=== PATIENT | female | born 1965 | race Asian ===

== ENCOUNTER 2017-05-08 11:29 | Emergency (ER) | payer OTHER ==
[~2017-05-08] VITALS: Ht 160 cm; Wt 63.5 kg
[~2017-05-08 11:29] MED LIST: ASPIRIN PO; BUTALBITAL PO; CAFFEINE PO; [UNRECOGNIZED DRUG - CODE] PO
[2017-05-08 11:57] VITALS: BP 139/74
--- NOTE | 2017-05-08 12:01 | NUR ---
PT PRESENTS TO ER FOR EVALUATION OF LACERATION TO LEFT WRIST SUSTAINED LAST NOC WHILE LIFTING BOXES. DENIES N/V/D; SKIN IS PINK/WARM/DRY; AAOX4 WITH EVEN AND STEADY GAIT; LUNGS CLEAR BL; HR EVEN AND REGULAR; PT DENIES ANY FEVER, CP, SOB, OR COUGH AT THIS TIME; PATIENT STATES PAIN OF 7/10 AT THIS TIME; VSS; PATIENT POSITIONED FOR COMFORT; HOB ELEVATED; BEDRAILS UP X2; BED DOWN. ER MD MADE AWARE OF PT STATUS.
--- NOTE | 2017-05-08 12:02 | NUR ---
DR GOODWIN EVALUATING AAO PT WITH DAUGHTER AT BEDSIDE
--- NOTE | 2017-05-08 12:07 | NUR ---
Dr. Roe evaluating patient at bedside.
[2017-05-08] MEDS ORDERED: LIDOCAINE 1% ED 0 ML ONE (12:11)
[2017-05-08 13:32] VITALS: BP 128/73
== END 2017-05-08 13:32 | disposition home or self-care (01) ==
LOC: MED 11:29
DX: S61.512A Laceration without foreign body of left wrist, initial encounter (principal); W25.XXXA Contact with sharp glass, initial encounter; Y93.89 Activity, other specified; Y92.89 Other specified places as the place of occurrence of the external cause; Y99.8 Other external cause status
CPT/HCPCS: 73110; 90471; 90715; 99284; Q0092; J2001

== ENCOUNTER 2018-10-10 01:15 | Emergency (ER) | payer OTHER ==
[~2018-10-10] VITALS: Ht 157.5 cm; Wt 56.7 kg
[2018-10-10 01:25] VITALS: BP 146/86
--- NOTE | 2018-10-10 01:25 | NUR ---
PT TAKEN TO BED 2
--- NOTE | 2018-10-10 01:35 | NUR ---
52 YO FEMALE COMES TO ED FOR C/O N/V X2 DAYS. PT STATES SHE ALSO HAS MIGRAINE. PT PRIMARILY SPEAKS [place]. PT SON @ BEDSIDE AND IS TRANSLATING. PT RECENTLY SAW PCP X1 WEEK AGO FOR HIGH BLOOD SUGAR AND WAS GIVEN REFERRAL FOR A SPECIALIST REGARDING DIABETES. PT STILL AWAITING APPOINTMENT TO GO SEE DOCTOR, AND STATES THAT HER SYMPTOMS BEGAN TO WORSEN. PT AAOX4, DENIES NUMBNESS TINGLING @ THIS TIME. PT AMB MOVING ALL EXTREMITIES. LUNGS CLEAR EVEN UNLABORED BILATERALLY. ABD SOFT NON DISTENDED. ACTIVE BS. PT VOIDING. SKIN INTACT. WILL UPDATE ER MD WILL CONTINUE TO OBSERVE. PMH: MIGRAINES, POSSIBLE DIABETES
--- NOTE | 2018-10-10 01:53 | NUR ---
Dr. Phelps evaluating patient at bedside.
[2018-10-10] MEDS ORDERED: SUMAtriptan 6 MG/0.5 ML VIAL SUBQ ONE (01:55)
--- NOTE | 2018-10-10 02:10 | NUR ---
PT STATED SHE FELT SOB PER SON. PULSE OX 100% SPO2. LUNGS CLEAR EVEN UNLABORED. WILL CONTINUE TO OBSERVE.
--- NOTE | 2018-10-10 02:18 | NUR ---
PT HAD X1 N/V ER MADE AWARE. BEVERLEY CONTI ORDERED. WILL CARRY OUT ORDER. WILL CONTINUE TO OBSERVE.
[2018-10-10] MEDS ORDERED: ONDANSETRON 4 MG ODT PO ONE (02:20)
[2018-10-10 03:14] VITALS: BP 140/68
--- NOTE | 2018-10-10 03:16 | NUR ---
Patient discharged with v/s stable. Written and verbal after care instructions given and explained BY ER MD. Patient alert, oriented and verbalized understanding of instructions. Ambulatory with steady gait. All questions addressed prior to discharge BY ER MD. ID band removed. Patient advised to follow up with PMD. Rx of IMITREX given. Patient educated on indication of medication including possible reaction and side effects BY ER MD. Opportunity to ask questions provided and answered FROM ER MD.
== END 2018-10-10 03:16 | disposition home or self-care (01) ==
LOC: MED 01:15
DX: G43.909 Migraine, unspecified, not intractable, without status migrainosus (principal); Z79.899 Other long term (current) drug therapy
CPT/HCPCS: 96372; 99283; J3030; Q0162

== ENCOUNTER 2023-05-24 16:26 | Emergency (ER) | payer OTHER ==
[~2023-05-24] VITALS: Ht 157.5 cm; Wt 68.0 kg
[2023-05-24 16:37] VITALS: BP 144/74; PULSE 73; RESP 14; TEMP 98.4; O2SAT 100
[2023-05-24 17:49] LABS: BASOPHILS % (AUTO) 0.6 % (0.0-2.0); EOSINOPHILS # (AUTO) 0.1 K/uL (0-0.4); HEMATOCRIT 37.3 % (36-48); HEMOGLOBIN 12.6 g/dL (12.0-16.0); LYMPHOCYTES # (AUTO) 3.1 K/uL (2.5-16.5); LYMPHOCYTES % (AUTO) 44.5 % (20.5-51.1); MEAN CORPUSCULAR HEMOGLOBIN 28 pg (27-31); MEAN CORPUSCULAR HGB CONC 34 g/dL (33-37); MONOCYTES # (AUTO) 0.4 K/uL (0.8-1.0); MONOCYTES % (AUTO) 5.8 % (1.7-9.3); NEUTROPHILS # (AUTO) 3.4 K/uL (1.8-7.7); NEUTROPHILS % (AUTO) 48.1 % (42.2-75.2); PLATELET COUNT (AUTO) 215 K/uL (140-450); RED BLOOD CELL COUNT(AUTO) 4.49 MIL/uL (4.20-5.40); RED CELL DISTRIBUTION WIDTH 12.4 % (11.6-13.7); WHITE BLOOD COUNT (AUTO) 7.1 K/uL (4.8-10.8)
[2023-05-24 18:15] LABS: ALANINE AMINOTRANSFERASE 26 U/L (12-78); ALBUMIN 3.7 g/dL (3.4-5.0); ALKALINE PHOSPHATASE 87 U/L (50-136); ANION GAP 11.8 (8-16); ASPARTATE AMINOTRANSFERASE 18 U/L (15-37); CARBON DIOXIDE 26.7 mmol/L (21-32); CHLORIDE 104 mmol/L (98-107); CREATININE 0.8 mg/dL (0.6-1.3); GFR ARICAN-AMERICAN 95 mL/min (>90); GFR NON ARICAN-AMERICAN 79 mL/min (>90); GLUCOSE 105 mg/dL (74-106); LIPASE 36 U/L (73-393); POTASSIUM 3.5 mmol/L (3.5-5.1); SODIUM SERUM 139 mmol/L (136-145); TOTAL BILIRUBIN 0.3 mg/dL (0.0-1.0); TOTAL PROTEIN, SERUM 7.3 g/dL (6.4-8.2); UREA NITROGEN, BLOOD 12 mg/dL (7-18)
[2023-05-24 18:22] LABS: APPEARANCE,URINE CLEAR (CLEAR); BILIRUBIN,URINE NEGATIVE (NEGATIVE); BLOOD, URINE NEGATIVE (NEGATIVE); COLOR,URINE YELLOW (YELLOW); LEUKOCYTE ESTERASE ,URINE NEGATIVE (NEGATIVE); NITRITE, URINE NEGATIVE (NEGATIVE); PROTEIN,URINE NEGATIVE (NEGATIVE); UGLUCOSE NEGATIVE (NEGATIVE); UROBILINOGEN,URINE 0.2 EU/dL (0.2 - 1)
[2023-05-24] MEDS ORDERED: KETOROLAC 60 MG/2 ML VIAL IM ONE (18:55)
[2023-05-24] MEDS ORDERED: HYDROcodone/APAP 5/325 MG 1 TAB TAB PO ONE (20:10)
[2023-05-24 20:53] VITALS: BP 144/74; PULSE 73; RESP 14; TEMP 98.4; O2SAT 100
== END 2023-05-24 20:53 | disposition home or self-care (01) ==
LOC: MED 16:26
DX: M54.50 Low back pain, unspecified (principal); R10.9 Unspecified abdominal pain; Z79.899 Other long term (current) drug therapy
CPT/HCPCS: 36415; 71045; 80053; 81003; 83690; 84484; 85025; 85379; 96372; 99284; J1885

== ENCOUNTER 2024-06-02 14:43 | Emergency (ER) | payer OTHER ==
[~2024-06-02] VITALS: Ht 152.4 cm; Wt 65.3 kg
[2024-06-02 14:45] VITALS: BP 166/88; PULSE 74; RESP 15; TEMP 98; O2SAT 98
[2024-06-02] MEDS ORDERED: IBUP-2213 PO (16:13)
[2024-06-02] MEDS: KETOROLAC 60 MG/2 ML VIAL IM ONE (16:25)
[2024-06-02 16:26] VITALS: BP 148/81; PULSE 88; RESP 12; O2SAT 97
== END 2024-06-02 16:26 | disposition home or self-care (01) ==
LOC: MED 14:43
DX: R07.89 Other chest pain (principal); I10 Essential (primary) hypertension; Z79.899 Other long term (current) drug therapy
CPT/HCPCS: 93005; 96372; 99283; J1885